=== PATIENT | female | born 2000 | race Caucasian/White ===

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

== ENCOUNTER 2019-01-21 23:19 | Emergency (ER) | payer OTHER ==
[~2019-01-21] VITALS: Ht 157.5 cm; Wt 100.0 kg
[2019-01-21 23:23] VITALS: BP 146/83
--- NOTE | 2019-01-21 23:55 | NUR ---
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 PT WAS STRUCK BY TELE BOX BY PT WITH DEMENTIA. PT HAS LIGHT SWELLING AND REPORTS PAIN. NADN. BAIRES.
--- NOTE | 2019-01-21 23:56 | NUR ---
Patient/Caregiver given discharge instructions and they have confirmed that they understand the instructions. Patient ambulatory with steady gait.
== END 2019-01-21 23:58 | disposition home or self-care (01) ==
LOC: ED 23:56
DX: S00.83XA Contusion of other part of head, initial encounter (principal); X58.XXXA Exposure to other specified factors, initial encounter; Y93.89 Activity, other specified; Y92.89 Other specified places as the place of occurrence of the external cause; Y99.0 Civilian activity done for income or pay
CPT/HCPCS: 99281

== ENCOUNTER → 2020-07-01 | Outpatient (CLI) | payer OTHER | END | disposition home or self-care (01) | LOC: CFH 15:47 | PROVIDERS: ATTEND Internal Medicine Cardiovascular Disease | DX: I51.7 Cardiomegaly (principal); R06.02 Shortness of breath; Q24.6 Congenital heart block | CPT/HCPCS: 93306 ==

== ENCOUNTER → 2020-10-06 | Outpatient (CLI) | payer OTHER | END | disposition home or self-care (01) | LOC: CFH 08:22 | PROVIDERS: ATTEND Obstetrics & Gynecology | DX: N83.02 Follicular cyst of left ovary (principal); N83.01 Follicular cyst of right ovary; E28.2 Polycystic ovarian syndrome | CPT/HCPCS: 76830 ==